=== PATIENT | female | born 1975 | race Caucasian/White ===

== ENCOUNTER 2020-09-20 20:02 | Emergency (ER) | payer MEDICAID, OTHER ==
[~2020-09-20] VITALS: Ht 157.5 cm; Wt 81.6 kg
[2020-09-21 00:16] LABS: Basophils # (auto) 0 10 ^3/uL (0-0.2); Basophils % (auto) 0.3 % (0.0-2.0); Eosinophils # (auto) 0.3 10 ^3/uL (0-0.8); Eosinophils % (auto) 3.4 % (0.0-7.0); Hematocrit 43.4 % (36.0-46.0); Hemoglobin 14.7 g/dL (12.2-16.2); Lymphocytes # (auto) 3.2 10 ^3/uL (0.4-5.4); Lymphocytes % (auto) 32.6 % (10.0-50.0); Mean Corpuscular Hemoglobin 27.7 pg (28.0-32.0); Mean Corpuscular Hgb Conc. 33.8 g/dL (32.0-36.0); Mean Corpuscular Volume 81.9 fL (80.0-100.0); Monocytes # (auto) 0.4 10 ^3/uL (0-1.3); Monocytes % (auto) 4.4 % (0.0-12.0); Neutrophils # (auto) 5.8 10 ^3/uL (1.6-8.6); Neutrophils % (auto) 59.3 % (37.0-80.0); Nucleated Red Blood Cells % 0.1 %; Platelet Count (auto) 298 10^3/uL (140-450); White Blood Cell 9.7 10^3/uL (4.4-10.8)
[2020-09-21 00:35] LABS: Chloride 102 mmol/L (98-107); Potassium 3.9 mmol/L (3.5-5.1); Sodium 138 mmol/L (136-145)
[2020-09-21 00:40] LABS: Alanine Aminotransferase 46 U/L (13-56); Albumin 3.7 g/dL (3.4-5.0); Anion Gap 11 (5-15); Aspartate Aminotransferase 33 U/L (15-37); BUN/Creatinine Ratio 22.1; Blood Urea Nitrogen 15 mg/dL (7-18); Calcium 8.7 mg/dL (8.5-10.1); Carbon Dioxide 25 mmol/L (21-32); GFR African American 121 mL/min; GFR Non-African American 100 mL/min; Glucose 240 mg/dL (74-106)
[2020-09-21 00:44] LABS: INR 0.89 (0.9-1.15); Partial Thromboplastin Time 25.9 sec (23.0-31.2)
[2020-09-21 00:45] LABS: Alkaline Phosphatase 120 U/L (45-117); Bilirubin, Total 0.3 mg/dL (0.2-1.0); Total Protein 7.6 g/dL (6.4-8.2)
[2020-09-21 03:06] LABS: Urine Bacteria MOD /hpf (None Seen); Urine Blood Negative /uL (Negative); Urine Mucus FEW (None Seen); Urine Specific Gravity 1.025 (1.001-1.035); Urine WBC Clumps PRESENT /hpf (None Seen)
[2020-09-21 03:12] LABS: Urine WBC 60 /hpf (0 - 5)
[2020-09-21 04:00] VITALS: BP 130/67
== END 2020-09-21 04:04 | disposition home or self-care (01) ==
LOC: ER 20:02
DX: R07.89 Other chest pain (principal); E11.65 Type 2 diabetes mellitus with hyperglycemia; K21.9 Gastro-esophageal reflux disease without esophagitis; Z90.49 Acquired absence of other specified parts of digestive tract
CPT/HCPCS: 36415; 71045; 80053; 81001; 83880; 84484; 85025; 85379; 85610; 85730; 87086; 87088; 87186; 93005

== ENCOUNTER 2024-06-05 22:58 | Emergency (ER) | payer BC, OTHER ==
[~2024-06-05] VITALS: Ht 157.5 cm; Wt 79.7 kg
[2024-06-05 23:42] LABS: Urine Bacteria None Seen /hpf (None Seen); Urine WBC None Seen /hpf (0 - 5)
[2024-06-05] MEDS: KETOROLAC TROMETH 60MG/2ML VIAL IM ONE (23:42)
[2024-06-05 23:54] VITALS: BP 155/82; RESP 19; TEMP 98.1; O2SAT 95
[2024-06-05 23:56] VITALS: PULSE 79
[2024-06-06] LABS: Urine Blood Negative /uL (Negative); Urine Clarity Clear (Clear); Urine Protein, UAD Negative (Negative); Urine Specific Gravity 1.016 (1.001-1.035); Urine Urobilinogen Normal (Negative); Urine pH 6.5 (5.0-9.0)
[2024-06-06 00:03] LABS: Urine Color STRAW (Yellow)
[2024-06-06] MEDS ORDERED: IBU600T PO (01:28)
[2024-06-06] MEDS ORDERED: CYCL-838 PO (01:28)
== END 2024-06-06 01:34 | disposition home or self-care (01) ==
LOC: ER 22:58
DX: S46.812A Strain of other muscles, fascia and tendons at shoulder and upper arm level, left arm, initial encounter (principal); X58.XXXA Exposure to other specified factors, initial encounter; Y93.89 Activity, other specified; Y92.89 Other specified places as the place of occurrence of the external cause; Y99.8 Other external cause status; E11.9 Type 2 diabetes mellitus without complications; K21.9 Gastro-esophageal reflux disease without esophagitis; Z90.49 Acquired absence of other specified parts of digestive tract
CPT/HCPCS: 36415; 81001; 84484; 93005; 96372; 99284; J1885

== ENCOUNTER 2024-08-14 15:47 | Emergency (ER) | payer BC ==
[~2024-08-14] VITALS: Ht 177.8 cm; Wt 106.0 kg
[~2024-08-14 15:47] MED LIST: CYCL-838 PO; IBU600T PO
[2024-08-14] MEDS: KETOROLAC TROMETH 60MG/2ML VIAL IM ONE (16:15)
[2024-08-14] MEDS: HYDROcodone-ACET 5/325MG TAB PO ONE (16:15)
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
[2024-08-14] MEDS ORDERED: HYDR-4902 PO (18:42)
[2024-08-14] MEDS ORDERED: IBUP-1455 PO (18:42)
[2024-08-14 18:57] VITALS: BP 163/91; PULSE 88; RESP 18; O2SAT 100
== END 2024-08-14 18:59 | disposition home or self-care (01) ==
LOC: ER 15:47
DX: S16.1XXA Strain of muscle, fascia and tendon at neck level, initial encounter (principal); S39.012A Strain of muscle, fascia and tendon of lower back, initial encounter; M47.812 Spondylosis without myelopathy or radiculopathy, cervical region; E11.9 Type 2 diabetes mellitus without complications; K21.9 Gastro-esophageal reflux disease without esophagitis; Z90.49 Acquired absence of other specified parts of digestive tract; V89.2XXA Person injured in unspecified motor-vehicle accident, traffic, initial encounter; Y93.89 Activity, other specified; Y92.89 Other specified places as the place of occurrence of the external cause; Y99.8 Other external cause status
CPT/HCPCS: 72040; 72100; 96372; 99284; J1885

== ENCOUNTER 2024-08-17 21:26 | Emergency (ER) | payer OTHER, BC ==
[~2024-08-17] VITALS: Ht 157.5 cm; Wt 78.8 kg
[~2024-08-17 21:26] MED LIST changes: +HYDR-4902 PO; +IBUP-1455 PO
--- NOTE | 2024-08-18 00:04 | DVH ---
CLINICAL HISTORY: abd pain TECHNIQUE: CT of the abdomen and pelvis was performed without intravenous contrast. This exam was per formed according to our departmental dose optimization program. Up-to-date CT equipment and radiation dose reduction techniques are utilized as appropriate. CTDI: [CTDIvol] DLP: 793.27 WID: COMPARISON: None FINDINGS: Lower Thorax: Unremarkable. Liver and Biliary system: Mild hepatomegaly measuring 21 cm craniocaudal. Prior cholecystectomy. Oth erwise unremarkable. Spleen: Unremarkable. Adrenal Glands and Kidneys: Normal adrenal glands. Tiny nonobstructing left renal calculi. No hydrone phrosis in either kidney. Pancreas and Retroperitoneum: Unremarkable. Aorta and Major Vessels: Trace calcified plaque in the abdominal aorta. The aortoiliac vessels are n ormal in caliber. Bowel, Mesentery and Peritoneal space: The small and large bowel loops are normal in caliber. Normal appendix. There is miniscule ascites in the pelvis. There is no well-formed fluid collection, mesente rasheeda lymphadenopathy, or free air. Pelvis: There are a few surgical clips in the right lower quadrant and anterior right pelvis. There i s a tampon in the vagina. Urinary bladder is mildly distended. No pelvic lymphadenopathy. Abdominal wall and Osseous Structures: Multilevel lower thoracic and lumbar spondylosis. No destructi ve osseous lesion. IMPRESSION: 1. No noncontrast evidence of acute abnormality. 2. Mild hepatomegaly. 3. Tiny nonobstructing left renal calculi. 4. A few surgical clips in the right lower quadrant and anterior right pelvis. Question if the patien t has tubal ligation clips and if these are migrated tubal ligation clips. Otherwise correlate with surgical history.
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
[2024-08-18 00:40] VITALS: BP 158/84; PULSE 79; RESP 18; TEMP 98.1; O2SAT 97
== END 2024-08-18 00:44 | disposition home or self-care (01) ==
LOC: ER 21:26
DX: S30.1XXA Contusion of abdominal wall, initial encounter (principal); E11.9 Type 2 diabetes mellitus without complications; K21.9 Gastro-esophageal reflux disease without esophagitis; Z90.49 Acquired absence of other specified parts of digestive tract; Z79.899 Other long term (current) drug therapy; V89.2XXA Person injured in unspecified motor-vehicle accident, traffic, initial encounter; Y93.89 Activity, other specified; Y92.89 Other specified places as the place of occurrence of the external cause; Y99.8 Other external cause status
CPT/HCPCS: 74176